=== PATIENT | female | born 1940 | race Caucasian/White ===

== ENCOUNTER 2025-06-11 13:04 | Emergency (ER) | payer OTHER ==
--- NOTE | 2025-06-11 13:47 | RAD REPORT ---
EXAM: CT brain without contrast HISTORY: CONFUSED COMPARISON: None TECHNIQUE: Multiple contiguous axial images were obtained and a CT of the brain without contrast. Sag ittal and coronal reformats were performed. One or more of the following dose reduction techniques were used: Automated exposure control, adjust ment of the mA and/or kV according to patient size, and/or iterative reconstruction. FINDINGS: There is mild motion artifact present. No evidence of hydrocephalus, intracranial hemorrhage, or extra-axial fluid collection. Moderate brain atrophy with moderate periventricular and deep white matter chronic microvascular isc hemic changes present. No evidence of midline shift or areas of brain edema. The calvarium is intact. The visualized paranasal sinuses and mastoid air cells are essentially clear . IMPRESSION: No evidence of acute intracranial abnormality.
--- NOTE | 2025-06-11 13:54 | RAD REPORT ---
EXAM: CT CHEST, ABDOMEN AND PELVIS WITHOUT CONTRAST CLINICAL INDICATION: TRAUMA TECHNIQUE: CT chest, abdomen and pelvis was performed without contrast, as per department protocol. A xial, sagittal and coronal reconstructions were obtained. One or more of the following dose reduction techniques were used: Automated exposure control, adjustment of the mA and/or kV according to patient size, and/or iterative reconstruction. Unless otherwise specified, incidental findings do not require dedicated imaging follow-up. Examination is limited by the lack of intravenous contrast material. COMPARISON: No prior exam. FINDINGS: LUNGS: Mild interstitial pulmonary edema. PLEURA: Small left pleural effusion. MEDIASTINUM AND LYMPH NODES: No mediastinal mass or fluid collection. Normal size mediastinal, hilar, and axillary lymph nodes. The heart is mildly prominent in size. OSSEOUS STRUCTURES AND CHEST WALL: Intact. LIVER: 16 mm cyst in the liver inferiorly. No aggressive liver lesion. Suspected cholelithiasis. PANCREAS: No mass, ductal dilation, or leanne-pancreatic fluid. SPLEEN: Normal size. No focal lesion. ADRENALS: Normal; no mass. KIDNEYS: 10 mm stone proximal right ureter with moderate right hydronephrosis. Left small 4 mm calcul us proximal left ureter without significant left-sided hydronephrosis. URINARY BLADDER: Normal contour. GASTROINTESTINAL TRACT: No bowel obstruction, free air, significant free fluid or abscess. APPENDIX: Appendix not visualized, but no inflammatory changes in region of appendix. LYMPH NODES: No lymphadenopathy. MUSCULOSKELETAL: Moderate lumbar degenerative changes. IMPRESSION: 10 mm stone right UPJ resulting in moderate right hydronephrosis. 4 mm calculus proximal left ureter without significant hydronephrosis.
--- NOTE | 2025-06-11 13:58 | RAD REPORT ---
EXAMINATION: ONE VIEW CHEST XR CLINICAL INDICATION: COUGH TECHNIQUE: Frontal chest projection is submitted. Examination is limited by patient positioning and t echnique. COMPARISON: 12/11/2016 FINDINGS: Mild interstitial edema suspected. The heart is upper limit of normal in size. Tortuous thoracic aort a. Diffuse osteopenia. IMPRESSION: No acute intrathoracic abnormalities.
--- NOTE | 2025-06-11 14:00 | RAD REPORT ---
EXAMINATION: XR RIGHT WRIST CLINICAL INDICATION: Pain;Swelling RIGHT TECHNIQUE: Multiple projections of the right wrist were obtained. COMPARISON: No prior exam. FINDINGS: Advanced osteopenia. Fusion is present within the carpal proximal and distal rows. Advanced radiocarpal degenerative changes with prosthesis present along the radial aspect of the carpal row proximally. No acute fracture or dislocation.
--- NOTE | 2025-06-11 14:01 | RAD REPORT ---
EXAMINATION: XR LEFT WRIST CLINICAL INDICATION: PAIN TECHNIQUE: Multiple projections of the left wrist were obtained. COMPARISON: No prior exam. FINDINGS: Advanced osteopenia. Significant chondrocalcinosis. Advanced degenerative change first CMC joint. No acute fracture or dislocation.
[2025-06-11 14:07] LABS: Absolute Lymphocytes (CBC) 1.5 K/uL (0.7-4.9); Hematocrit 40.1 % (36.0-45.0); Hemoglobin 13.1 g/dL (12.0-15.0); MCH 32.6 pg (27.0-35.0); MCHC 32.6 g/dL (32.0-36.0); MCV 100.0 fL (80-100); MPV 7.7 fL (7.6-11.3); Nucleated RBC Absolute Count 0.0 (0-0); Nucleated Red Blood Cells % 0.1 % (0-0); RBC Red Blood Cell Count 4.01 M/uL (3.86-4.86); White Blood Count 5.50 thou/uL (4.3-10.9)
[2025-06-11 14:20] LABS: PT Prothrombin Time 30.3 SECONDS (10-13.0); PTT, Activated Partial Thromb 45.1 SECONDS (27.2-37.4); Protime INR 2.76
[2025-06-11 14:29] LABS: ALT/SGPT 18.0 U/L (13-56); AST/SGOT 23.0 U/L (15-37); Albumin 3.1 g/dL (3.4-5.0); Albumin/Globulin Ratio 1.0 (1.1-1.8); Alkaline Phosphatase 68.0 U/L (45-117); Anion Gap 8.1 mEq/L (5.0-15.0); BUN Blood Urea Nitrogen 28.0 mg/dL (7-18); Globulin 3.0 g/dL (2.3-3.5); Glucose Level 86.0 mg/dL (74-106); NT PRO-BNP 6449.0 pg/mL (<450); Potassium 4.1 mEq/L (3.5-5.1); Troponin High Sensitivity 37.8 pg/mL (<58.9)
[2025-06-11 14:42] LABS: Sqamous Epithelial None Seen /HPF (None Seen); Urine Culture Reflex Order REFLEXED; Urine Microscopic Reflex YN ORDER UMIC
[2025-06-11] MEDS ORDERED: NA CHLORIDE 0.9% 500 ML ONE (14:47)
[2025-06-11] MEDS ORDERED: FUROSEMIDE 40 MG/4 ML VIAL ONE (15:24)
[2025-06-11] MEDS ORDERED: CEFTRIAXONE 1000 MG/VIAL ONE (15:24)
[2025-06-11] MEDS ORDERED: NA CHLORIDE 0.9% 100 ML ONE (15:24)
--- NOTE | 2025-06-11 17:02 | EDPHYS ---
Physician Documentation [facility] Name: Analisa Hart Age: 84 yrs Sex: Female : 1940 Arrival Date: 06/11/2025 Time: 13:04 Bed 20 Private MD: ED Physician Satnam Guaman HPI: 06/11 15:07 This 84 yrs old Female presents to ER via EMS with complaints of Fall Injury. dr5 15:07 Onset: The symptoms/episode began/occurred acutely. Patient is an 84-year-old female dr5 with history of hypertension and congestive heart failure coming in by EMS for fall that occurred at some point this morning. Son states that he saw her at 8 AM in shortly afterwards was found on the floor. Patient is confused and has early signs of dementia per her son Christopher ([phone]). Patient knows where she is at, her name, and her date of . Patient does not endorse any pain and does not elaborate on questions when asked.. Historical: - Allergies: 13:23 PENICILLINS; me1 13:23 Sulfa (Sulfonamide Antibiotics); me1 - PMHx: 13:23 Congestive heart failure; Hypertensive disorder; rhabdomyelosis; me1 - Immunization history:: Adult Immunizations unknown. - Infectious Disease History:: Denies. - Social history:: Smoking status: Patient denies any tobacco usage or history of. ROS: 15:07 Constitutional: as per hpi dr5 Exam: 15:07 Constitutional: This is a well developed, well nourished patient who is awake, alert, dr5 and in no acute distress. Head/Face: Normocephalic, atraumatic. Eyes: Pupils equal round and reactive to light, extra-ocular motions intact. Lids and lashes normal. Conjunctiva and sclera are non-icteric and not injected. Cornea within normal limits. Periorbital areas with no swelling, redness, or edema. Neck: Trachea midline, no thyromegaly or masses palpated, and no cervical lymphadenopathy. Supple, full range of motion without nuchal rigidity, or vertebral point tenderness. No Meningismus. Chest/axilla: Normal chest wall appearance and motion. Nontender with no deformity. No lesions are appreciated. Cardiovascular: Irregular rate and rhythm with a normal S1 and S2. Normal PMI, no JVD. No pulse deficits. Respiratory: Lungs have equal breath sounds bilaterally, clear to auscultation. No rales, rhonchi or wheezes noted. No increased work of breathing, no retractions or nasal flaring. Abdomen/GI: Soft, non-tender, non-distended Back: No spinal tenderness. No costovertebral tenderness. Full range of motion. MS/ Extremity: Pulses equal, no cyanosis. Neurovascular intact. Full, normal range of motion. Neuro: Awake and alert, GCS 15, oriented to person, place, time, and situation. Cranial nerves II-XII grossly intact. Motor strength 5/5 in all extremities. Sensory grossly intact. Cerebellar exam normal. Normal gait. Vital Signs: 13:17 BP 144 / 105; Pulse 82; Resp 19; Temp 98; Pulse Ox 100% ; Weight 81.65 kg; Height 5 ft. me1 7 in. ; Pain 0/10; 14:00 BP 136 / 100; Pulse 97; Resp 17; Pulse Ox 98% ; me1 15:00 BP 148 / 110; Pulse 102; Resp 16; Pulse Ox 99% ; me1 16:00 BP 120 / 70; Pulse 89; Resp 17; Pulse Ox 100% ; me1 17:00 BP 154 / 94; Pulse 99; Resp 16; Pulse Ox 97% ; me1 18:00 BP 140 / 101; Pulse 102; Resp 18; Pulse Ox 96% ; me1 13:17 Body Mass Index 28.19 (81.65 kg, 170.18 cm) me1 13:17 Pain Scale: Adult me1 MDM: 13:15 Medical Screening Exam initiated dr5 15:07 Differential diagnosis: abrasion, closed head injury, Congestive heart failure dr5 exacerbation, urinary tract infection, kidney stone, intracranial hemorrhage, fracture. Data reviewed: vital signs, nurses notes, lab test result(s), CBC, white blood cell count, hemoglobin, hematocrit, platelets, electrolytes, sodium, potassium, chloride, serum bicarbonate, BUN, creatinine, serum glucose, urinalysis, bacteruria, EKG, radiologic studies, CT scan, plain films. Consideration of Admission/Observation Patient was admitted/placed on observation. 15:12 Historians other than the Patient: Daughter/Son: Spoke with Christopher her son who verified dr5 patient by 2 identifiers and he agreed upon transfer to either [facility] or [facility] for acute kidney injury, urinary tract affection, and kidney stone causing moderate right sided hydronephrosis.. 17:03 Management of patient was discussed with the following: Hospitalist: Dr. Smith. I dr5 considered the following discharge prescriptions or medication management in the emergency department I discussed and recommended Over The Counter medications, Medications were administered in the Emergency Department. See MAR. Care significantly affected by the following chronic conditions: Hypertension, Dementia, CHF. Care significantly affected by the following Social Determinants of Health: Poor access to healthcare and/or lack of insurance, Poor access to transportation, Problems related to employment. Counseling: I had a detailed discussion with the patient and/or guardian regarding the historical points, exam findings, and any diagnostic results supporting the discharge/admit diagnosis, the presence of at least one elevated blood pressure reading (>120/80) during this emergency department visit, lab results, radiology results, the need to transfer to another facility, for higher level of care, [facility] does not immediately have the required specialist, No Urology at [facility]. Medication response: Flor Gasca. ED course: Spoke with Dr. Rondon who accepted patient. Patient VS are stable. No acute changes during ER stay.. 06/11 13:16 Order name: BNP; Complete Time: 14:38 [facility] 06/11 13:16 Order name: Blood Culture Adult (2) [facility] 06/11 13:16 Order name: CBC with Diff; Complete Time: 14:20 [facility] 06/11 13:16 Order name: CMP; Complete Time: 14:38 [facility] 06/11 13:16 Order name: Lactate w/ 2H reflex if indic.; Complete Time: 14:28 [facility] 06/11 13:16 Order name: Protime (+inr); Complete Time: 14:27 [facility] 06/11 13:16 Order name: Ptt, Activated; Complete Time: 14:27 [facility] 06/11 13:16 Order name: Troponin HS; Complete Time: 14:38 [facility] 06/11 13:16 Order name: UA Rfx Maged Cult if indicated; Complete Time: 14:43 [facility] 06/11 14:31 Order name: Ghost Lactate-NO COLLECT Timer; Complete Time: 16:30 EDMS 06/11 14:46 Order name: Urine Culture EDMD 06/11 16:31 Order name: Lactate w/ 2H reflex if indic.; Complete Time: 17:31 [facility] 06/11 17:27 Order name: Ghost Lactate-NO COLLECT Timer EDMS 06/11 13:16 Order name: CT Head Brain wo Cont; Complete Time: 13:56 [facility] 06/11 13:17 Order name: Chest Single View XRAY; Complete Time: 13:59 [facility] 06/11 13:17 Order name: CT Chest Abdomen Pelvis W/O Contrast; Complete Time: 13:56 [facility] 06/11 13:17 Order name: Wrist Left (3 View) XRAY; Complete Time: 14:06 [facility] 06/11 13:17 Order name: Wrist Right 3 View XRAY; Complete Time: 14:06 [facility] 06/11 13:16 Order name: Accucheck; Complete Time: 14:42 [facility] 06/11 13:16 Order name: Cardiac monitoring; Complete Time: 14:04 [facility] 06/11 13:16 Order name: Cath; Complete Time: 14:30 [facility] 06/11 13:16 Order name: EKG - Nurse/Tech; Complete Time: 14:02 [facility] 06/11 13:16 Order name: IV Saline Lock - Large Bore; Complete Time: 14:02 [facility] 06/11 13:16 Order name: Labs collected and sent; Complete Time: 14:02 [facility] 06/11 13:16 Order name: O2 Per Protocol; Complete Time: 14:04 [facility] 06/11 13:16 Order name: O2 Sat Monitoring; Complete Time: 14:04 [facility] 06/11 13:16 Order name: Vital Signs; Complete Time: 14:04 [facility] EC:57 Rate is 91 beats/min. Rhythm is irregularly irregular. QRS interval is normal at 88 dr5 msec. QT interval is normal at 362 msec. Clinical impression: Atrial Fibrillation. Administered Medications: 14:42 CANCELLED (Inappropriate at this time): ns 0.9% (30 ml/kg) 30 ml/kg IV at bolus once; dr5 Sepsis Protocol; to be given as a bolus over 90 minutes 14:50 Drug: NS 0.9% IV 500 ml IV at per protocol once; to be given as a bolus over 30 minutes me1 Route: IV; Rate: per protocol; Site: right antecubital; 15:30 Follow up: Response: No adverse reaction; IV Status: Completed infusion me1 16:12 Follow up: Response: No adverse reaction; IV Status: Completed infusion; IV Intake: me1 500ml 15:29 Drug: Furosemide IVP 40 mg IVP once; give over 2 minutes Route: IVP; Site: right me1 antecubital; 16:11 Follow up: Response: No adverse reaction me1 15:29 Drug: Rocephin IV 1 grams IV at per protocol once; Given slow IV push per pharmacy me1 instructions Route: IV; Rate: per protocol; Site: right antecubital; 16:12 Follow up: Response: No adverse reaction; IV Status: Completed infusion me1 Disposition Summary: 06/11/25 17:02 Transfer Ordered Notes: Transfer Location: [facility] dr5 Reason: Higher level of care dr5 Condition: Stable dr5 Problem: new dr5 Symptoms: are unchanged dr5 Accepting Physician: Dr. Smith(06/11/25 18:42) me1 Diagnosis - Unspecified combined systolic (congestive) and diastolic (congestive) heart failure dr5 - Kidney Stone/ Calculus in urethra dr5 Forms: - Medication Reconciliation Form dr5 - SBAR form dr5 Signatures: Dispatcher [employer] EDLeonora Hand RN RN me1 Abebe Osborne, COMPUTER TAPE LIBRARIAN-C COMPUTER TAPE LIBRARIAN-Cdr5 Corrections: (The following items were deleted from the chart) 13:17 13:17 PROBNP+C.LAB.BRZ ordered. EDMS EDMS 13:17 13:17 BLOOD CULTURE*+BA.LAB.BRZ ordered. EDMS EDMS 13:17 13:17 CBC+H.LAB.BRZ ordered. EDMS EDMS 13:17 13:17 COMPREHENSIVE METABOLIC PANEL+C.LAB.BRZ ordered. EDMS EDMS 13:17 13:17 LACTATE+C.LAB.BRZ ordered. EDMS EDMS 13:17 13:17 PROTIME (+INR)+COAG.LAB.BRZ ordered. EDMS EDMS 13:17 13:17 PTT, ACTIVATED+COAG.LAB.BRZ ordered. EDMS EDMS 13:17 13:17 Troponin High Sensitivity+C.LAB.BRZ ordered. EDMS EDMS 13:17 13:17 UA Rfx Maged Cult if indicated+U.LAB.BRZ ordered. EDMS EDMS 13:17 13:17 Head Brain Wo Cont+CT.RAD.BRZ ordered. EDMS EDMS 13:17 13:17 Chest Single View+RAD.RAD.BRZ ordered. EDMS EDMS 13:18 13:18 Wrist Left 3 View+RAD.RAD.BRZ ordered. EDMS EDMS 13:18 13:18 Wrist Right 3 View+RAD.RAD.BRZ ordered. EDMS EDMS 14:42 14:28 NS 0.9% IV (30 ml/kg) 30 ml/kg IV at bolus once; Sepsis Protocol; to be given as dr5 a bolus over 90 minutes ordered. dr5 18:42 17:02 Dr[address] Smith dr5 me1
--- NOTE | 2025-06-11 17:02 | ER ---
Nurse's Notes [facility] Name: Analisa Hart Age: 84 yrs Sex: Female : 1940 Arrival Date: 06/11/2025 Time: 13:04 Bed 20 Private MD: Diagnosis: Unspecified combined systolic (congestive) and diastolic (congestive) heart failure;Kidney Stone/ Calculus in urethra Presentation: 06/11 13:17 Chief complaint: EMS states: son found patient next to bed this morning in the floor. me1 Called EMS because bilateral hands and feet are mottled and patient had told her son she was "feeling sickly". Denies feeling sickly to EMS and during triage but does state that she "has rotten blood" and cannot elaborate. Denies pain. BGL 75. Coronavirus screen: At this time, the client does not indicate any symptoms associated with coronavirus-19. Ebola Screen: No symptoms or risks identified at this time. Initial Sepsis Screen: Does the patient meet any 2 criteria? No. Patient's initial sepsis screen is negative. Does the patient have a suspected source of infection? No. Patient's initial sepsis screen is negative. Risk Assessment: Do you want to hurt yourself or someone else? Patient reports no desire to harm self or others. Onset of symptoms is unknown. 13:17 Method Of Arrival: EMS: [place] [id number] 13:17 Acuity: ALOK 3 wa1 Triage Assessment: 13:23 General: Appears in no apparent distress. Behavior is calm, cooperative, appropriate wa1 for age. Pain: Denies pain. EENT: No signs and/or symptoms were reported regarding the EENT system. Neuro: Level of Consciousness is awake, alert, obeys commands, confused, Oriented to person, place, situation, Appropriate for age. Cardiovascular: Patient's skin is warm and dry. mottling noted to bilateral hands and feet. Respiratory: Airway is patent Respiratory effort is even, unlabored, Respiratory pattern is regular, symmetrical. GI: No signs and/or symptoms were reported involving the gastrointestinal system. : No signs and/or symptoms were reported regarding the genitourinary system. Derm: Skin is fragile, with poor turgor Skin is mottled, bilateral hands and feet. Musculoskeletal: No signs and/or symptoms reported regarding the musculoskeletal system. Circulation, motion, and sensation intact. Range of motion: intact in all extremities. Historical: - Allergies: 13:23 PENICILLINS; me1 13:23 Sulfa (Sulfonamide Antibiotics); me1 - PMHx: 13:23 Congestive heart failure; Hypertensive disorder; rhabdomyelosis; me1 - Immunization history:: Adult Immunizations unknown. - Infectious Disease History:: Denies. - Social history:: Smoking status: Patient denies any tobacco usage or history of. Screenin:25 [facility] ED Fall Risk Assessment (Adult) History of falling in the last 3 months, me1 including since admission Yes- single mechanical fall (1 pt) Confusion or Disorientation Yes (5 pts) Intoxicated or Sedated No (0 pts) Impaired Gait Yes (1 pt) Mobility Assist Device Used Yes (1 pt) Altered Elimination No (0 pt) Score/Fall Risk Level 0 - 2 = Low Risk Maintained a safe environment, Provided non-skid footwear, Hourly rounding (assess needs \\T\\ fall precautionary measures) done. Abuse screen: Denies threats or abuse. Nutritional screening: No deficits noted. Tuberculosis screening: No symptoms or risk factors identified. Assessment: 13:25 General: See triage assessment. me1 17:11 General: Tried to call report. Asked to call back in 10 minutes. me1 17:53 Reassessment: Called son Christopher and updated him with room number at [facility] and gave him me1 the phone number to the nurses station where his mother will be. Updated on status and POC. Verbalized understanding. Vital Signs: 13:17 BP 144 / 105; Pulse 82; Resp 19; Temp 98; Pulse Ox 100% ; Weight 81.65 kg; Height 5 ft. me1 7 in. ; Pain 0/10; 14:00 BP 136 / 100; Pulse 97; Resp 17; Pulse Ox 98% ; me1 15:00 BP 148 / 110; Pulse 102; Resp 16; Pulse Ox 99% ; me1 16:00 BP 120 / 70; Pulse 89; Resp 17; Pulse Ox 100% ; me1 17:00 BP 154 / 94; Pulse 99; Resp 16; Pulse Ox 97% ; me1 18:00 BP 140 / 101; Pulse 102; Resp 18; Pulse Ox 96% ; me1 13:17 Body Mass Index 28.19 (81.65 kg, 170.18 cm) me1 13:17 Pain Scale: Adult [facility] ED Course: 13:09 Patient arrived in ED. em1 13:09 Satnam Guaman MD is Attending Physician. jr11 13:14 Abebe Osborne FNP-C is PHCP. dr5 13:17 Leonora Harding, FREDY is Primary Nurse. wa1 13:23 Triage completed. me1 13:23 Arm band placed on Patient placed in an exam room. me1 13:25 Patient has correct armband on for positive identification. Bed in low position. Call wa1 light in reach. Side rails up X2. Provided Education on: POC. Verbalized understanding.. Client placed on continuous cardiac and pulse oximetry monitoring. NIBP monitoring applied. potline monitor on. Pulse ox on. NIBP on. 13:25 No provider procedures requiring assistance completed. me1 13:35 CT Head Brain wo Cont In Process Unspecified. EDMS 13:35 CT Chest Abdomen Pelvis W/O Contrast In Process Unspecified. EDMS 13:47 Chest Single View XRAY In Process Unspecified. EDMS 13:47 Wrist Left (3 View) XRAY In Process Unspecified. EDMS 13:48 Wrist Right 3 View XRAY In Process Unspecified. EDMS 13:58 Initial lab(s) drawn, by wa, sent to lab. First set of blood cultures drawn by wa. 6 14:02 BNP Sent. bc6 14:02 Blood Culture Adult (2) Sent. bc6 14:02 CBC with Diff Sent. bc6 14:02 CMP Sent. bc6 14:02 Lactate w/ 2H reflex if indic. Sent. bc6 14:02 Protime (+inr) Sent. bc6 14:02 Ptt, Activated Sent. bc6 14:02 Troponin HS Sent. bc6 14:02 Inserted saline lock: 20 gauge in right antecubital area, using aseptic technique. 6 Blood collected. Flushed with 10 mL NS. 14:30 UA Rfx Maged Cult if indicated Sent. bc6 17:33 Patient transferred, IV remains in place. [facility] Administered Medications: 14:42 CANCELLED (Inappropriate at this time): ns 0.9% (30 ml/kg) 30 ml/kg IV at bolus once; dr5 Sepsis Protocol; to be given as a bolus over 90 minutes 14:50 Drug: NS 0.9% IV 500 ml IV at per protocol once; to be given as a bolus over 30 minutes me1 Route: IV; Rate: per protocol; Site: right antecubital; 15:30 Follow up: Response: No adverse reaction; IV Status: Completed infusion me1 16:12 Follow up: Response: No adverse reaction; IV Status: Completed infusion; IV Intake: me1 500ml 15:29 Drug: Furosemide IVP 40 mg IVP once; give over 2 minutes Route: IVP; Site: right me1 antecubital; 16:11 Follow up: Response: No adverse reaction me1 15:29 Drug: Rocephin IV 1 grams IV at per protocol once; Given slow IV push per pharmacy me1 instructions Route: IV; Rate: per protocol; Site: right antecubital; 16:12 Follow up: Response: No adverse reaction; IV Status: Completed infusion me1 Medication: 13:25 VIS not applicable for this client. me1 Intake: 16:12 IV: 500ml; Total: 500ml. me1 Outcome: 17:02 ER care complete, transfer ordered by . dr5 17:33 Transferred by ground EMS to [facility], Note: community integration specialist. Report me1 called to FREDY Heredia at [facility] 9 tow. 17:33 Condition: stable 17:33 Instructed on the need for admit, 18:42 Patient left the ED. me1 Addendum: 06/17/2025 08:14 Addendum: Culture Results: Positive urine culture. Phone call Attempt #1 Called and s s spoke with automatic operator who states patient has been discharged from [facility]. Signatures: Dispatcher [employer] Sixto Moore em1 Bekah Moore, RN RN Satnam Guaman MD MD [id number] Lupis Reza bc6 Leonora Harding RN RN me1 Abebe Osborne, ENGINEERING PSYCHOLOGIST-C ENGINEERING PSYCHOLOGIST-Cdr5
[2025-06-11 18:51] VITALS: TEMP 98
[2025-06-11 19:11] VITALS: BP 140/101; O2SAT 96
== END 2025-06-11 18:42 | disposition short-term general hospital (02) ==
LOC: ER 13:04
DX: I50.40 Unspecified combined systolic (congestive) and diastolic (congestive) heart failure (principal); N20.0 Calculus of kidney; N21.1 Calculus in urethra; I10 Essential (primary) hypertension
CPT/HCPCS: 96365; 96361; 93005; 87040 ×2; 87088; 85025; 81001; 87086; 36415; 85610; 83605 ×2; 85730; 87077; 87186; 84484; 80053; 83880; 70450; 71250; 74176; 71045; 73110 ×2; 96375; 99285; J1938; J7040; J0696